=== PATIENT | male | born 1945 | race Caucasian/White ===

== ENCOUNTER 2017-05-10 05:55 | Day surgery (SDC) | payer OTHER | END 2017-05-10 10:50 | disposition home or self-care (01) | LOC: AMB-ENDOS 05:55 | DX: D12.2 Benign neoplasm of ascending colon (principal); D12.5 Benign neoplasm of sigmoid colon ==

== ENCOUNTER 2018-10-14 08:55 | Outpatient (CLI) | payer OTHER | END 2018-10-14 15:19 | disposition home or self-care (01) | LOC: NUCLEAR 08:55 | DX: J43.2 Centrilobular emphysema (principal); R91.1 Solitary pulmonary nodule; R06.02 Shortness of breath; Z72.0 Tobacco use | CPT/HCPCS: 78816; A9552 ==